=== PATIENT | male | born 1940 | race Two or more races ===

== ENCOUNTER 2018-08-23 21:28 | Emergency (ER) | payer OTHER ==
[~2018-08-23] VITALS: Ht 162.6 cm; Wt 68.0 kg
== END 2018-08-24 14:43 | disposition home or self-care (01) ==
LOC: ER 21:28
DX: R31.0 Gross hematuria (principal); N35.816 Other urethral stricture, male, overlapping sites

== ENCOUNTER → 2019-07-03 | Outpatient (CLI) | payer OTHER | END | disposition home or self-care (01) | LOC: TOM 09:06 | DX: C61 Malignant neoplasm of prostate (principal) ==

== ENCOUNTER 2019-07-21 08:35 | Outpatient (CLI) | payer OTHER | END 2019-07-21 08:39 | disposition home or self-care (01) | LOC: SONOGRAMA 08:35 | DX: E78.89 Other lipoprotein metabolism disorders (principal); M54.5 Low back pain; N41.8 Other inflammatory diseases of prostate; E16.4 Increased secretion of gastrin; N99.528 Other complication of incontinent external stoma of urinary tract; I11.9 Hypertensive heart disease without heart failure; N32.89 Other specified disorders of bladder; K80.12 Calculus of gallbladder with acute and chronic cholecystitis without obstruction; R39.14 Feeling of incomplete bladder emptying; R10.13 Epigastric pain ==

== ENCOUNTER 2020-09-26 10:17 | Outpatient (CLI) | payer OTHER | END 2020-09-26 10:20 | disposition home or self-care (01) | LOC: NUCLEAR 10:17 | PROVIDERS: ATTEND Specialist | DX: C61 Malignant neoplasm of prostate (principal) | CPT/HCPCS: 78300; A9503 ==

== ENCOUNTER 2022-01-01 07:18 | Outpatient (CLI) | payer OTHER | END 2022-01-01 07:19 | disposition home or self-care (01) | LOC: NUCLEAR 07:18 | PROVIDERS: ATTEND Specialist | DX: C61 Malignant neoplasm of prostate (principal) ==

== ENCOUNTER 2022-05-01 11:32 | Outpatient (CLI) | payer OTHER | END 2022-05-01 11:39 | disposition home or self-care (01) | LOC: LAB 11:32 | PROVIDERS: ATTEND Radiology Diagnostic Radiology | DX: C61 Malignant neoplasm of prostate (principal) ==

== ENCOUNTER 2022-05-06 09:07 | Outpatient (CLI) | payer OTHER | END 2022-05-06 09:10 | disposition home or self-care (01) | LOC: TOM 09:07 | PROVIDERS: ATTEND Internal Medicine Hematology & Oncology | DX: C61 Malignant neoplasm of prostate (principal); I10 Essential (primary) hypertension | CPT/HCPCS: 74177; Q9965 ==

== ENCOUNTER 2024-12-05 09:20 | Emergency (ER) | payer OTHER ==
[~2024-12-05] VITALS: Ht 162.6 cm; Wt 70.3 kg
[2024-12-05] MEDS ORDERED: LEVOTHYROXINE50 MCG PO (09:42)
[2024-12-05] MEDS ORDERED: ATORVASTATIN CA20 MG PO (09:42)
[2024-12-05] MEDS ORDERED: BICALUTAMIDE50 MG PO (09:42)
[2024-12-05] MEDS ORDERED: METOPROLOL SUCC50 MG PO (09:42)
[2024-12-05] MEDS ORDERED: LIDOCAINE HCL 1% 10ML VIAL ONE (11:40)
[2024-12-05] MEDS ORDERED: LIDOCAINE HCL 1% 10ML VIAL PERCUT ONE (11:45)
[2024-12-05] MEDS ORDERED: CEFUROXIME500 MG PO (12:02)
[2024-12-05] MEDS ORDERED: PEPCID AC20 MG PO (12:02)
== END 2024-12-05 12:33 | disposition home or self-care (01) ==
LOC: ER 09:22
DX: S01.81XA Laceration without foreign body of other part of head, initial encounter (principal); W19.XXXA Unspecified fall, initial encounter; Y93.89 Activity, other specified; Y92.488 Other paved roadways as the place of occurrence of the external cause; Y99.8 Other external cause status; M79.641 Pain in right hand

== ENCOUNTER 2024-12-06 14:47 | Outpatient (CLI) | payer OTHER ==
[~2024-12-06 14:47] MED LIST: ATORVASTATIN CA20 MG PO; BICALUTAMIDE50 MG PO; CEFUROXIME500 MG PO; LEVOTHYROXINE50 MCG PO; METOPROLOL SUCC50 MG PO; PEPCID AC20 MG PO
== END 2024-12-06 14:52 | disposition home or self-care (01) ==
LOC: RAD 14:47
PROVIDERS: ATTEND Orthopaedic Surgery
DX: S62.336A Displaced fracture of neck of fifth metacarpal bone, right hand, initial encounter for closed fracture (principal)

== ENCOUNTER → 2024-12-18 | Emergency (ER) | payer OTHER | END | disposition left against medical advice (07) | LOC: ER 11:11 | DX: Z53.21 Procedure and treatment not carried out due to patient leaving prior to being seen by health care provider (principal) ==

== ENCOUNTER 2024-12-27 07:55 | Outpatient (CLI) | payer OTHER | END 2024-12-27 08:02 | disposition home or self-care (01) | LOC: RAD 07:55 | PROVIDERS: ATTEND Orthopaedic Surgery | DX: S62.336A Displaced fracture of neck of fifth metacarpal bone, right hand, initial encounter for closed fracture (principal); X58.XXXA Exposure to other specified factors, initial encounter; Y93.9 Activity, unspecified; Y92.9 Unspecified place or not applicable; Y99.9 Unspecified external cause status ==

== ENCOUNTER 2025-04-05 09:06 | Outpatient (CLI) | payer OTHER | END 2025-04-05 09:08 | disposition home or self-care (01) | LOC: RAD 09:06 | PROVIDERS: ATTEND Orthopaedic Surgery | DX: S62.336D Displaced fracture of neck of fifth metacarpal bone, right hand, subsequent encounter for fracture with routine healing (principal); X58.XXXD Exposure to other specified factors, subsequent encounter ==